=== PATIENT | male | born 1980 ===

== ENCOUNTER 2022-03-09 10:03 | Day surgery (SDC) | payer OTHER ==
[~2022-03-09] VITALS: Ht 185.4 cm; Wt 75.7 kg
[2022-03-09] MEDS ORDERED: fentaNYL citrate 0.05 MG/ML VIAL ONE (10:58)
[2022-03-09] MEDS ORDERED: MIDAZOLAM 5 MG/5 ML VIAL ONE (10:58)
[2022-03-09] MEDS ORDERED: diphenhydrAMINE 50 MG/ML VIAL ONE (10:59)
[2022-03-09] MEDS ORDERED: LIDOCAINE 2% 100 MG/5 ML UJET TP ONE (11:00)
[2022-03-09] MEDS ORDERED: fentaNYL citrate 0.05 MG/ML VIAL IVP ONE ×2 (12:40→12:45)
[2022-03-09] MEDS ORDERED: MIDAZOLAM 5 MG/5 ML VIAL IV ONE ×2 (12:40→12:45)
== END 2022-03-09 11:30 | disposition home or self-care (01) ==
LOC: MDS 10:03 → MMU 10:13 → MDS 11:30
PROVIDERS: ATTEND Internal Medicine Gastroenterology
DX: K62.5 Hemorrhage of anus and rectum (principal); K63.5 Polyp of colon; Z20.822 Contact with and (suspected) exposure to COVID-19; Z79.899 Other long term (current) drug therapy
CPT/HCPCS: 45385; 87426; J2250; J3010; J1200